=== PATIENT | female | born 1980 | race Two or more races ===

== ENCOUNTER 2022-09-21 09:18 | Emergency (ER) | payer OTHER ==
[~2022-09-21] VITALS: Ht 157.5 cm; Wt 68.0 kg
[2022-09-21] MEDS ORDERED: TAPAZOLE5 MG (09:58)
[2022-09-21] MEDS ORDERED: LORAZEPAM2 MG (09:58)
[2022-09-21] MEDS ORDERED: LEXAPRO20 MG (10:00)
[2022-09-21] MEDS ORDERED: CLEOCIN HCL300 MG PO (10:14)
== END 2022-09-21 10:29 | disposition home or self-care (01) ==
LOC: ER 09:18
DX: K08.89 Other specified disorders of teeth and supporting structures (principal); Z88.6 Allergy status to analgesic agent

== ENCOUNTER 2022-09-27 07:38 | Emergency (ER) | payer OTHER ==
[~2022-09-27] VITALS: Ht 157.5 cm; Wt 68.0 kg
[~2022-09-27 07:38] MED LIST: CLEOCIN HCL300 MG PO; LEXAPRO20 MG; LORAZEPAM2 MG; TAPAZOLE5 MG
== END 2022-09-27 08:50 | disposition home or self-care (01) ==
LOC: ER 07:38
DX: K08.89 Other specified disorders of teeth and supporting structures (principal); Z88.6 Allergy status to analgesic agent

== ENCOUNTER 2022-10-08 07:30 | Emergency (ER) | payer OTHER ==
[~2022-10-08] VITALS: Ht 157.5 cm; Wt 68.0 kg
== END 2022-10-08 09:41 | disposition home or self-care (01) ==
LOC: ER 07:30
DX: F41.9 Anxiety disorder, unspecified (principal); Z88.6 Allergy status to analgesic agent